=== PATIENT | female | born 1995 | race Caucasian/White ===

== ENCOUNTER 2017-08-20 12:40 | Outpatient (CLI) | payer OTHER | END 2017-08-20 12:41 | disposition home or self-care (01) | LOC: BICMRI 12:40 | PROVIDERS: ATTEND Neurological Surgery | DX: M54.16 Radiculopathy, lumbar region (principal) | CPT/HCPCS: 72110; 72148 ==

== ENCOUNTER 2018-03-06 09:43 | Outpatient (CLI) | payer OTHER ==
[2018-03-06 11:00] LABS: #Eosinphils 0.1 thou/uL (0.0-0.7); #Lymphocytes 1.8 thou/uL (1.20-3.40); #Monocytes 0.4 thou/uL (0.11-0.59); #Neutrophils 2.9 thou/uL (1.40-6.50); %Basophils 0.9 % (0.0-1.0); %Eosinophils 1.7 % (0.0-10.0); %Monocytes 7.1 % (0.0-10.0); %Neutrophils 56.4 % (42.0-75.0); Hemoglobin 13.2 g/dL (12.0-16.0); Mean Corpuscular HGB CONC 33.6 g/dL (32.0-36.0); Mean Corpuscular Hemoglobin 29.8 pg (27.0-31.0); Mean Corpuscular Volume 88.8 fL (78.0-98.0); Mean Platelet Volume 11.1 fL (7.4-10.4); Platelet Count 138 thou/uL (130-400); RBC Distribution Width 12.7 % (11.5-14.5); Red Blood Cell (RBC) Count 4.41 mill/uL (4.20-5.40); White Blood Cell (WBC) Count 5.2 thou/uL (4.8-10.8)
[2018-03-06 11:05] LABS: BHCG - Serum Negative (NEGATIVE); Pregs Control Background? CLEAR/WHITE (CLR/WHITE); Pregs Control Bar Appear? YES (CONTROL BAR)
[2018-03-06 11:14] LABS: Anion Gap 11 mmol/L (10-20); BUN (Urea Nitrogen) 17 mg/dL (7.0-18.7); Calc. Creatinine Clearance 0 mL/min (70-130); Calcium 9.6 mg/dL (7.8-10.44); Carbon Dioxide 24 mmol/L (22-29); Chloride 108 mmol/L (98-107); Estimated GFR-MDRD 71; Glucose 86 mg/dL (70-105); Potassium 4.4 mmol/L (3.5-5.1); Sodium 139 mmol/L (136-145)
--- NOTE | 2018-03-11 08:14 | EKG ---
Test Reason : Blood Pressure : / mmHG Vent. Rate : 072 BPM Atrial Rate : 072 BPM P-R Int : 138 ms QRS Dur : 078 ms QT Int : 406 ms P-R-T Axes : 079 090 071 degrees QTc Int : 444 ms Normal sinus rhythm Rightward axis Borderline ECG No previous ECGs available Confirmed by DR. Grady SINGH ([id number]) on 03/11/2018 8:14:15 AM Referred By: JANET Confirmed By:DR. Grady SINGH
== END 2018-03-06 09:44 | disposition home or self-care (01) ==
LOC: LABBT 09:43
PROVIDERS: ATTEND Neurological Surgery
DX: Z01.818 Encounter for other preprocedural examination (principal); M54.16 Radiculopathy, lumbar region
CPT/HCPCS: 80048; 84703; 85025; 93005; 93010

== ENCOUNTER 2018-03-09 07:42 | Day surgery (SDC) | payer OTHER ==
[2018-03-06 10:10] VITALS: BMI 20.9
[2018-03-09] MEDS ORDERED: CEFAZOLIN 2 GM/50 ML BAG ONE (10:12)
[2018-03-09] MEDS ORDERED: CEFAZOLIN 1 GM VIAL ONE (10:12)
[2018-03-09] MEDS ORDERED: Midazolam HCl 2 mg/2 ml Vial ONE (10:48)
[2018-03-09] MEDS ORDERED: Fentanyl 100 MCG/2 ML VIAL ONE ×4 (11:42→13:57)
--- NOTE | 2018-03-09 12:50 | OP ---
DATE OF PROCEDURE: 03/09/2018 SURGEON: Markell Biggs M.D. DATA ANALYSIS INTERN: Salma Arango PROCEDURE: Left L5-S1 microdiscectomy, operating microscope. PROCEDURE IN DETAIL: The patient was brought to the operating room and intubated. She was rolled in the prone position on gel-filled chest rolls. Incision made exposing left L5-S1 and our level was c onfirmed by x-ray. We performed left L5-S1 hemilaminectomy, removed the yellow ligament, identified the left S1 nerve root and beneath this was a large extruded disk herniation. This was incised and d ebrided in multiple large fragments using the operating microscope and microdissection techniques. T he disk space itself was entered and debrided of any loose fragments. A complete decompression of le ft S1 was achieved. The wound was then extensively irrigated, immaculate hemostasis was secured. Va ncomycin powder was applied and the wound was closed in anatomic layers.
[2018-03-09] MEDS ORDERED: Meperidine HCl/PF 25 MG/ML VIAL ONE (13:22)
[2018-03-09] MEDS ORDERED: Ondansetron PF 4 MG/2 ML Vial ONE (14:53)
[2018-03-09] MEDS ORDERED: Dexamethasone 20 MG/5 ML VIAL ONE (14:53)
[2018-03-09] MEDS ORDERED: Metoclopramide HCl 10 MG/2 ML VIAL ONE (14:53)
[2018-03-09] MEDS ORDERED: Glycopyrrolate 0.2 MG/ML 5 ML SYRINGE ONE (14:53)
[2018-03-09] MEDS ORDERED: Ketorolac Tromethamine 30 MG/ML VIAL ONE (14:53)
[2018-03-09] MEDS ORDERED: PROPOFOL 200 MG/20 ML VIAL ONE (14:53)
[2018-03-09] MEDS ORDERED: Lidocaine 1% PF 5 ML VIAL ONE (14:53)
== END 2018-03-09 15:15 | disposition home or self-care (01) ==
LOC: SDC 07:42
PROVIDERS: ATTEND Neurological Surgery
PROC: 0SB40ZZ Excision of Lumbosacral Disc, Open Approach (ICD-10-PCS; principal; 2018-03-09)
DX: M51.17 Intervertebral disc disorders with radiculopathy, lumbosacral region (principal); Z79.899 Other long term (current) drug therapy
CPT/HCPCS: 76001; 96374; 96375; J0131; J0690; J1100; J1885; J2001; J2175; J2250; J2405; J2704; J2765; J3010; J3370